=== PATIENT | male | born 1965 | race Two or more races ===

== ENCOUNTER 2024-09-28 22:17 | Emergency (ER) | payer BC ==
[~2024-09-28] VITALS: Ht 180.3 cm; Wt 77.1 kg
[2024-09-28 22:19] VITALS: O2SAT 98
== END 2024-09-28 23:15 | disposition home or self-care (01) ==
LOC: ER 22:29
DX: R06.6 Hiccough (principal); R14.0 Abdominal distension (gaseous); F17.210 Nicotine dependence, cigarettes, uncomplicated
CPT/HCPCS: 71045; A4606; A4663